=== PATIENT | male | born 1960 | race Caucasian/White ===

== ENCOUNTER 2016-05-27 10:35 | Day surgery (SDC) ==
[2016-05-27] MEDS ORDERED: ALBUTEROL 0.083% NEB NEB STA (10:53)
[2016-05-27] MEDS ORDERED: SUBLIMAZE ONE (11:20)
[2016-05-27] MEDS ORDERED: LIDOCAINE HCL 2% LUER-JET ONE (11:20)
[2016-05-27] MEDS ORDERED: VERSED ONE (11:20)
[2016-05-27] MEDS ORDERED: DIPRIVAN 20 ML VIAL IVP ONE (11:20)
[2016-05-27 12:18] VITALS: BP 121/81; TEMP 97
--- NOTE | 2016-05-28 10:51 | OP ---
PROCEDURE: EGD (ESOPHAGOGASTRODUODENOSCOPY) WITH BIOPSY. ENDOSCOPIST: Colin JOSHI M.D. INDICATION: Nausea INSTRUMENT: GIFH-190. MEDICATION: PER ANESTHESIA. PROCEDURE: The patient was positioned for endoscopy. The oropharynx was sprayed with Cetacaine spray and the endoscope was advanced through the bite block into the esophagus and from there advanced to the duodenum. The duodenum was normal. The pylorus was patent. The antrum was normal. Retroflex exam reveals a hiatal hernia. 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 Biopsies were obtained. Esophagitis extended well up onto the midesophagus. PLAN: 1. We are going to place him on twice a day Protonix and repeat his examine in three months. CC: Murali PEDERSON
== END 2016-05-27 12:29 | disposition home or self-care (01) ==
LOC: SURG 10:35
PROVIDERS: ATTEND Internal Medicine Gastroenterology
DX: R11.0 Nausea (principal); D13.0 Benign neoplasm of esophagus; K20.9 Esophagitis, unspecified; K44.9 Diaphragmatic hernia without obstruction or gangrene
CPT/HCPCS: 94640

== ENCOUNTER 2016-08-27 12:01 | Outpatient (CLI) ==
[2016-08-27 12:46] LABS: BASOPHILS # (AUTO) 0.1 K/uL (0-0.2); BASOPHILS % (AUTO) 1.4 % (0.0-3.0); EOSINOPHILS # (AUTO) 0.2 K/ul (0.0-0.7); EOSINOPHILS % (AUTO) 2.1 % (0.0-7.0); HEMATOCRIT 44.3 % (42.0-52.0); HEMOGLOBIN 15.1 g/dl (14.0-18.0); IMMATURE GRANULOCYTE % (AUTO) 0.4 % (0.0-5.0); LYMPHOCYTES # (AUTO) 2.2 K/uL (0.60-3.4); LYMPHOCYTES % (AUTO) 26.1 (10.0-50.0); MEAN CORPUSCULAR HEMOGLOBIN 30.9 pg (27.0-31.0); MEAN CORPUSCULAR HGB CONC 34.1 (31.8-35.4); MEAN CORPUSCULAR VOLUME 90.8 fl (80.0-94.0); MONOCYTES # (AUTO) 0.5 K/uL (0.4-2.0); MONOCYTES % (AUTO) 5.8 (0-10); NEUTROPHILS # (AUTO) 5.5 K/ul (2.0-6.9); NEUTROPHILS % (AUTO) 64.2; PLATELET COUNT 457 10^3/uL (140-440); RED BLOOD COUNT 4.88 10^6/ul (4.70-6.10); WHITE BLOOD COUNT 8.57 K/ul (4.2-10.2)
[2016-08-27 13:23] LABS: ALBUMIN/GLOBULIN RATIO 0.91; ANION GAP 13.4; BILIRUBIN,TOTAL 0.84 mg/dL (0.00-1.20); BUN/CREATININE RATIO 11.57; CALCIUM 9.7 mg/dL (8.2-10.2); CHOL/HDL RATIO 2.9 (4.5-6.4); CREATININE 0.95 mg/dL (0.60-1.10); POTASSIUM 4.4 mmol/L (3.5-5.1); TOTAL PROTEIN 8.4 g/dL (6.4-8.2)
== END 2016-08-27 12:02 | disposition home or self-care (01) ==
LOC: LAB 12:01
PROVIDERS: ATTEND Nurse Practitioner Family
DX: F32.9 Major depressive disorder, single episode, unspecified (principal); K21.9 Gastro-esophageal reflux disease without esophagitis; Z12.5 Encounter for screening for malignant neoplasm of prostate
CPT/HCPCS: 36415; 80053; 80061; 84439; 84443; 85025

== ENCOUNTER 2016-10-21 11:08 | Day surgery (SDC) ==
[2016-10-21] MEDS ORDERED: LIDOCAINE HCL 2% LUER-JET ONE (11:46)
[2016-10-21] MEDS ORDERED: VERSED ONE (11:46)
[2016-10-21] MEDS ORDERED: DIPRIVAN 20 ML VIAL IVP ONE (11:46)
[2016-10-21 13:06] VITALS: BP 119/82; TEMP 98.4
--- NOTE | 2016-10-22 10:22 | OP ---
PROCEDURE: EGD (ESOPHAGOGASTRODUODENOSCOPY) WITH BIOPSY. ENDOSCOPIST: Colin JOSHI M.D. INDICATION: IVERSON'S ESOPHAGUS. INSTRUMENT: GIFH-190. MEDICATION: PER ANESTHESIA. PROCEDURE: The patient was positioned for endoscopy. The oropharynx was sprayed with Cetacaine spray and the endoscope was advanced through the bite block into the esophagus and from there advanced to the duodenum. The duodenum was normal. The pylorus was patent. The antrum is normal. Retroflex exam reveals a hiatal hernia. 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 Multiple biopsies were obtained. He continues to have signs of esophagitis. He tolerated the procedure without immediate complication. PLAN: 1. Review pathology with repeat exam in three years. The patient was intolerant and told me that the Protonix made him sick to his stomach. Ideally, he would need to be on a proton pump inhibitor. He will need to followup with his primary care physician to determine if he is elgible for any proton pump inhibitor other than Protonix. CC: CAMACHO BROOKE
== END 2016-10-21 13:08 | disposition home or self-care (01) ==
LOC: SURG 11:08
PROVIDERS: ATTEND Internal Medicine Gastroenterology
DX: K21.0 Gastro-esophageal reflux disease with esophagitis (principal); K22.719 Barrett's esophagus with dysplasia, unspecified; K44.9 Diaphragmatic hernia without obstruction or gangrene

== ENCOUNTER 2016-11-27 12:16 | Outpatient (CLI) ==
[2016-11-27 12:23] LABS: BASOPHILS # (AUTO) 0.1 K/uL (0-0.2); BASOPHILS % (AUTO) 1.6 % (0.0-3.0); EOSINOPHILS # (AUTO) 0.1 K/ul (0.0-0.7); EOSINOPHILS % (AUTO) 1.8 % (0.0-7.0); HEMATOCRIT 42.8 % (42.0-52.0); HEMOGLOBIN 14.5 g/dl (14.0-18.0); IMMATURE GRANULOCYTE % (AUTO) 0.5 % (0.0-5.0); LYMPHOCYTES # (AUTO) 2.4 K/uL (0.60-3.4); LYMPHOCYTES % (AUTO) 30.3 (10.0-50.0); MEAN CORPUSCULAR HEMOGLOBIN 30.9 pg (27.0-31.0); MEAN CORPUSCULAR HGB CONC 33.9 (31.8-35.4); MEAN CORPUSCULAR VOLUME 91.1 fl (80.0-94.0); MONOCYTES # (AUTO) 0.4 K/uL (0.4-2.0); MONOCYTES % (AUTO) 5.6 (0-10); NEUTROPHILS # (AUTO) 4.8 K/ul (2.0-6.9); NEUTROPHILS % (AUTO) 60.2; PLATELET COUNT 442 10^3/uL (140-440); WHITE BLOOD COUNT 7.89 K/ul (4.2-10.2)
[2016-11-27 12:37] LABS: ALBUMIN 3.8 g/dL (3.4-5.0); ALBUMIN/GLOBULIN RATIO 0.86; ANION GAP 14.5; BILIRUBIN,TOTAL 0.53 mg/dL (0.00-1.20); BUN/CREATININE RATIO 12.64; CALCIUM 9.6 mg/dL (8.2-10.2); CHOL/HDL RATIO 3.2 (4.5-6.4); CREATININE 0.87 mg/dL (0.60-1.10); POTASSIUM 4.5 mmol/L (3.5-5.1); TOTAL PROTEIN 8.2 g/dL (6.4-8.2)
== END 2016-11-27 12:17 | disposition home or self-care (01) ==
LOC: LAB 12:16
PROVIDERS: ATTEND Nurse Practitioner Family
DX: F32.9 Major depressive disorder, single episode, unspecified (principal); K21.9 Gastro-esophageal reflux disease without esophagitis
CPT/HCPCS: 36415; 80053; 80061; 85025

== ENCOUNTER 2016-11-28 09:02 | Outpatient (CLI) ==
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
--- NOTE | 2016-11-28 10:17 | CT ---
EXAM: CT lumbar spine with and without contrast HISTORY: Lumbago with sciatica COMPARISON: None TECHNIQUE: CT lumbar spine performed with and without intravenous contrast. Coronal and sagittal r eformatted images obtained. FINDINGS: Vertebral bodies normal in height. No fracture. No subluxation. Small marginal osteoph yte formation. Mild intervertebral disc space narrowing L4-L5 and L5-S1 Sacroiliac joints intact. No abnormal area of enhancement. There is left basilar bronchiectasis with associated atelectasis an d/or consolidation, mildly decreased from CT chest 09/02/2016. Aorta normal caliber. Atheroscleros is. T12-L1: No central canal or neural foraminal narrowing. L1-L2: No central canal or neural foraminal narrowing L2-L3: No central canal or neural foraminal narrowing. L3-L4: Posterior disc osteophyte complex and facet arthrosis causing mild central canal and mild bi lateral neural foraminal narrowing L4-L5: Posterior disc osteophyte complex and facet arthrosis causing moderate central canal and mode rate right and mild to moderate left neural foraminal narrowing. L5-S1: Posterior disc osteophyte complex and facet arthrosis causing mild bilateral neural foramina l narrowing IMPRESSION: 1. No fracture or subluxation. 2. Chronic discogenic degenerative disease and facet arthrosis. Please see segmental analysis, not ing central canal and neural foraminal narrowing. 3. Left basilar bronchiectasis with associated atelectasis and/or pneumonia, mildly decreased from CT chest 09/02/2016
== END 2016-11-28 09:03 | disposition home or self-care (01) ==
LOC: RAD 09:02
PROVIDERS: ATTEND Nurse Practitioner Family
DX: M54.40 Lumbago with sciatica, unspecified side (principal); F32.9 Major depressive disorder, single episode, unspecified; K21.9 Gastro-esophageal reflux disease without esophagitis

== ENCOUNTER 2017-03-19 14:01 | Outpatient (CLI) | END 2017-03-19 14:02 | disposition home or self-care (01) | LOC: LAB 14:01 | PROVIDERS: ATTEND Nurse Practitioner Family | DX: R74.8 Abnormal levels of other serum enzymes (principal); M54.2 Cervicalgia; M54.40 Lumbago with sciatica, unspecified side; G89.29 Other chronic pain; M50.30 Other cervical disc degeneration, unspecified cervical region; M51.36 Other intervertebral disc degeneration, lumbar region; K21.9 Gastro-esophageal reflux disease without esophagitis; F32.9 Major depressive disorder, single episode, unspecified ==

== ENCOUNTER 2017-03-25 13:43 | Outpatient (CLI) ==
--- NOTE | 2017-03-25 14:35 | US ---
EXAM: Ultrasound bilateral carotid duplex HISTORY: Dizziness and giddiness. History of right carotid surgery. COMPARISON: None TECHNIQUE: Sonographic and color Doppler evaluation of the carotids were performed. FINDINGS: The right carotid is patent in appearance with mild atherosclerotic plaque visualized. Right ECA is p oorly visualized. The right ICA peak systolic velocity measures 100 cm/sec which is normal. The ICA / CCA peak systolic velocity ratio is 1.0 and ICA end-diastolic velocity is 30 cm/sec. The left carotid is patent in appearance with mild atherosclerotic plaque visualized. The left ICA peak systolic velocity measures 70 cm/sec which is normal. The left ICA / CCA peak systolic velocity ratio is 0.7 and ICA end-diastolic velocity is 30 cm/sec. Vertebral arteries demonstrate antegrade flow bilaterally. IMPRESSION: Bilateral mild to moderate scattered atherosclerotic disease with no elevated Doppler velocities to s uggest hemodynamically significant stenosis.
== END 2017-03-25 13:44 | disposition home or self-care (01) ==
LOC: RAD 13:43
PROVIDERS: ATTEND Nurse Practitioner Family
DX: R42 Dizziness and giddiness (principal)

== ENCOUNTER 2017-04-23 16:32 | Outpatient (CLI) | END 2017-04-23 16:33 | disposition home or self-care (01) | LOC: LAB 16:32 | PROVIDERS: ATTEND Nurse Practitioner Family | DX: R42 Dizziness and giddiness (principal) | CPT/HCPCS: 36415; 80053 ==

== ENCOUNTER 2017-04-24 08:59 | Outpatient (CLI) ==
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
== END 2017-04-24 09:00 | disposition home or self-care (01) ==
LOC: RAD 08:59
PROVIDERS: ATTEND Nurse Practitioner Family
DX: R42 Dizziness and giddiness (principal)

== ENCOUNTER 2017-05-05 09:19 | Outpatient (CLI) ==
--- NOTE | 2017-05-05 13:36 | DI ---
EXAM: Modified barium swallow HISTORY: Dysphagia. Technique: Lateral video fluoroscopy was performed in conjunction with speech therapy using multiple consistencies to evaluate swallowing function. Findings / impression: Aspiration was observed with barium covered sausage and the aspiration appeare d to occur before the swallow was fully initiated. Deep penetration was observed with thin liquids. T here was vallecular residue with all consistencies. Patient appeared to do the best with nectar. The contraction of the esophagus appeared to be disordered. There also may be an upper esophageal strictu re. There are degenerative changes of the cervical spine with prominent anterior osteophytes. Melissa baez see dedicated speech pathology report for additional details.
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
== END 2017-05-05 09:20 | disposition home or self-care (01) ==
LOC: RAD 09:19
PROVIDERS: ATTEND Nurse Practitioner Family
DX: R13.10 Dysphagia, unspecified (principal); K22.719 Barrett's esophagus with dysplasia, unspecified

== ENCOUNTER 2017-05-19 10:38 | Outpatient (RCR) ==
--- NOTE | 2017-05-19 15:44 | RS.DYSPHTX ---
Dysphagia Treatment Note Date of Note: 05/19/17 Visit #: 2 (first treatment post outpatient MBSS.) Time of Treatment: 11:00 Subjective: Pt reported he had been sick for one week and did go see his MD. He completed a week of antibiotics and felt better at time of ST visit. The patient also reported he was going to get a scan of his brain soon, no date was provided, to determine if any procedures for hydrocephalus were to be completed. The patient had not thickened any liquids since outpatient MBSS was completed. However he did not report any changes in his lungs at this time. O2 was placed and pt was at 98-[address] visit. Total treatment time: 60 - Short Term Goals Goal #1: Pt to safely consume nectar liquid without s/s of aspiration Activity/Accuracy: 8 oz of nectar thick liquids presented via open cup. 1x delayed cough and 1x throat clear was noted. Pt is an active smoker and also reported mild mucous drainage with drinks of liquids. Goal #2: Pt to complete Shaker exercise with minimal difficulty Activity/Accuracy: N/a this date Goal #3: Pt to complete ten reps of oral motor exercises with 75% acc. Goal #4: Pt to demonstrate bolus manipulation with minimal difficulty - Alf Goals Goal #1: Pt to consume liquid and solid w/o s/s of aspiration Assessment: HUNTER GUIDE assessed pt with mixing nectar thick liquids. Pt required mdoerate assistance and education to achieve nectar thick texture. Multiple trials were completed, and pt could verbalize and demonstrate procedure for mixing a nectar thick liquid at the end of the session. HUNTER GUIDE assessed pt swallowing nectar thick liquids and utilizing compensatory swallow strategies. Pt required small sips via open cup with a multiple swallow between each trial. Chin tuck was also trialed. Pt reported sensation of residue was reduced with chin tuck. - Units Charged Swallowing Therapy: 4 - Plan Frequency of Treatment: 1x a week Duration of Treatment: 6 weeks. Comments: HUNTER GUIDE provided printed papers with written instructions for mixing nectar thick liquids in the home environment. Other printed papers were provided with instructions for going to a restaurant with thickened liquids. Information was given about dairy products and aspiration/pneumonia.
== END 2017-05-21 ==
PROVIDERS: ATTEND Nurse Practitioner Family
DX: R13.10 Dysphagia, unspecified (principal)

== ENCOUNTER 2017-06-16 13:00 | Outpatient (RCR) ==
--- NOTE | 2017-05-26 15:03 | RS.DYSPHTX ---
Dysphagia Treatment Note Date of Note: 05/26/17 Visit #: 3 Time of Treatment: 11:00 Subjective: Pt's significant other present and participated with Skilled ST this date. Pt stated he had been thickening all his liquids since last ST visit. The significant other reported he had followed the MD DO [facility] recommendations. Questions about dairy products and alcholic beverages were discussed in detail. MD DO [facility] did not recommend any dairy products d/t mucous production and higher risk for pneunomia. MD DO [facility] did not recommend any PO intake while consuming alcholic beverages d/t risk of choking with decreased inhibitions and muscle coordination. Total treatment time: 45 - Short Term Goals Goal #1: Pt to safely consume nectar liquid without s/s of aspiration Activity/Accuracy: N/a this date. Only discussion with thickening and thickening agents to be purchased were addressed this date. Goal #2: Pt to complete Shaker exercise with minimal difficulty Activity/Accuracy: This was trialed with 1 set of 10 reps and 1 set maintaing head posture for 8 seconds. Pt had moderate difficulty. MD [facility] utilized head rest to increase comfort. MD DO [facility] reviewed all precautions and educated pt on reason for exercise. Goal #3: Pt to complete ten reps of oral motor exercises with 75% acc. Activity/Accuracy: Lingual lateralization with moderate difficulty over 1 trial of 10 reps. Lingual tip exercise with severe difficulty maintaining lingual tip to alvelor ridge for 7 seconds. Lingual tip sweep with moderate difficulty with clock mena direction, minimal difficulty with counter-clock mena direction. Goal #4: Pt to demonstrate bolus manipulation with minimal difficulty Activity/Accuracy: n/a this date. Education with lingual sweep and bolus manipulation was discussed for swallow safety. - Senior Care Goals Goal #1: Pt to consume liquid and solid w/o s/s of aspiration Assessment: Assessment of Shaker exercise completed. Pt had difficulty with neck comfort during exercise due to reports of cervical fusion. With head rest assistance and tactile cueing, pt completed ten reps. Pt maintained head lifted from surface for 8 seconds prior to needing a rest break. MD DO [facility] to start Shaker with 15 reps over 1 trial and sustaining head with 10 seconds over 2 trials. Oral-motor exercises assessed and pt requires max cues to control breathing. lingual coordination with exercises increase with tactile and visual cues. - Units Charged Swallowing Therapy: 3 - Plan Frequency of Treatment: 1x a week Duration of Treatment: 6 weeks Comments: Next session will include increased exercises and trials with nectar liquids. last two sessions will include PO trials with bolus manipulation.
--- NOTE | 2017-06-02 14:35 | RS.DYSPHTX ---
Dysphagia Treatment Note Date of Note: 06/02/17 Visit #: 3 Time of Treatment: 01:00 Subjective: Pt and pt's friend present for session. Friend had reported a difficulty morning, but BED SETTER did not see pt's mood interfere with treatment this date. Pt reported having difficulty with instructions for thickening liquids, frequency, and duration with thickened liquids. Pt also reported neck was sore after last session. BED SETTER educated pt and friend on both questions. Total treatment time: 60 - Short Term Goals Goal #1: Pt to safely consume nectar liquid without s/s of aspiration Activity/Accuracy: no overt s/s of aspiration with sips via straw. Goal #2: Pt to complete Shaker exercise with minimal difficulty Activity/Accuracy: BED SETTER had to provide pillow support and hand support for neck. Pt reported minimal pain. 2 trials sustaining head lift completed with 12 seconds and 20 seconds. 2 repetitions completed and pt reported pain. BED SETTER to determine if Shaker can be completed due to cervical spine deterioration. Goal #3: Pt to complete ten reps of oral motor exercises with 75% acc. Activity/Accuracy: Lingual tip in rotary motion completed with tactile support with 50% accuracy 3x. lingual tip sustained at alveloar ridge with 5 seconds and moderate difficulty. lateralization over 10 trials with mild difficulty with jaw stability. Goal #4: Pt to demonstrate bolus manipulation with minimal difficulty Activity/Accuracy: To be completed at next session. - Motor Checker Goals Goal #1: Pt to consume liquid and solid w/o s/s of aspiration Assessment: laryngeal elevation exercises trialed this date due to pts reports of pain in cervical spine. BED SETTER had Shaker exercise to strengthen LE and UES function, but this may be discharged if pt reports neck pain at next session. Laryngeal elevation completed over five trials with difficulty raising pitch. Pitched sustained with /e/ over 4-6 seconds. - Units Charged Swallowing Therapy: 4 - Plan Frequency of Treatment: 1x/week Duration of Treatment: 6 weeks Comments: Next session diet texture analysis. Begin working on bolus manipulation. Provide printed handouts with [id number] instructions for all education pt has been given.
--- NOTE | 2017-06-12 12:43 | RS.DYSPHTX ---
Dysphagia Treatment Note Date of Note: 06/12/17 Visit #: 4 Time of Treatment: 10:30 Subjective: Pt reported he had been consuming nectar thick liquids with his PO intake. However between meals, he does not use thickener in his drinks. He also has limited his dairy intake, specifically milk. But when asked, he stated he is still consuming milk 3-4x a week. This date, the BATTERY CHECKER noted his vocal quality changed and his cough sounded congested. No stats were taken nor were lung sounds monitored. The patient did not report feeling sick. Total treatment time: 30 - Short Term Goals Goal #1: Pt to safely consume nectar liquid without s/s of aspiration Activity/Accuracy: 4oz of nectar thick liquids were mixed via pt. He mixed the consistency exactly with the recipe, independently. Straw was used and the pt had no overt s/s of aspiration. Goal #2: Pt to complete Shaker exercise with minimal difficulty Goal #3: Pt to complete ten reps of oral motor exercises with 75% acc. Goal #4: Pt to demonstrate bolus manipulation with minimal difficulty - Dry Cleaner Hand Goals Goal #1: Pt to consume liquid and solid w/o s/s of aspiration Assessment: BATTERY CHECKER assessed his independent skills with making nectar thick liquids. Pt demonstrated all steps to complete a correctly mixed nectar thick consistency. Trials of nectar with and without a straw were assessed. He required the straw to guide and control the liquids. Due to decreased lingual control, the straw aided his successful swallows. Mixed consistency between nectar thick and thin liquids were trialed. BATTERY CHECKER assessed with tsp and pt had delayed cough or throat clear on 3/3 trials. Straw assessed and pt had throat clear on 2/4 trials. Open cup assessed and pt had overt s/s of aspiration on 3/ 3 trials. Pt still not safely consuming thin liquids and has overt s/s of aspiration with all thin consistencies. - Units Charged Swallowing Therapy: 2 - Plan Frequency of Treatment: 1x/week Duration of Treatment: 6 weeks Comments: Printed papers were provided to pt regarding, recommended diet textures, instructions for oral motor exercises, list of safe swallow precautions, and a list of compensatory swallow strategies. Written information was provided with nectar thick information.
--- NOTE | 2017-06-16 14:23 | RS.DYSPHTX ---
Dysphagia Treatment Note Date of Note: 06/16/17 Visit #: 4 Time of Treatment: 01:00 Subjective: Pt reported last three days with increased regurgitation episodes. These have been primarily affecting him while he is sleeping, making him get out of bed and regurgitate. Pt and pt's friend reported he is consuming nectar thick liquids with all meals. Total treatment time: 60 - Short Term Goals Goal #1: Pt to safely consume nectar liquid without s/s of aspiration Activity/Accuracy: [place] thick drinks via open cup consumed with PO intake. No overt s/s of aspiration. Without PO intake, no overt s/s of apsiration. Goal #2: Pt to complete Shaker exercise with minimal difficulty Goal #3: Pt to complete ten reps of oral motor exercises with 75% acc. Goal #4: Pt to demonstrate bolus manipulation with minimal difficulty Activity/Accuracy: Multiple trials completed. Initially pt required increased verbal cues to form bolus. However after 10 trials, bolus coordination and manipulation was noted with minimal difficulty. - Diesel Engine Mechanic Goals Goal #1: Pt to consume liquid and solid w/o s/s of aspiration Assessment: Diet texture anaylsis with mechanical soft diet and nectar thick liquids completed. RECORD CUTTER provided max cueing during initial trials for bolus manipulation and pressure with swallow function. Pt had throat clearing and overt coughing with 1/2 teaspoon and 3/4 teaspoon size bites. When RECORD CUTTER presented 1 tsp bite pt increased bolus control and decreased throat clearing. - Units Charged Swallowing Therapy: 4 - Plan Frequency of Treatment: 1x a week Duration of Treatment: 6 weeks Comments: next session continue diet texture analysis and training with bolus manipulation and compensatory swallow strategies.
== END 2017-06-21 ==
PROVIDERS: ATTEND Nurse Practitioner Family
DX: R13.10 Dysphagia, unspecified (principal)

== ENCOUNTER 2017-06-25 11:00 | Outpatient (RCR) ==
--- NOTE | 2017-06-23 14:50 | RS.DYSPHTX ---
Dysphagia Treatment Note Date of Note: 06/23/17 Visit #: 5 Time of Treatment: 01:00 Subjective: Pt stated he was anxious and was noted with essential hand tremors. Pt reported feeling upset due to recent holiday and family matters. Pt required verbal counseling briefly to reduce nervous behaviors and increase focus to structured therapy. Pt's girlfriend participated during skilled ST. When asked about his swallowing since his last visit, she reported multiple changes with moderate improvements. Improvements included no regurgitation, minimal choking episodes, and noticeably less effort with swallow initiation. The pt stated his swallow function has shown major improvements, and he feels more comfortable with his PO intake. Total treatment time: 45 - Short Term Goals Goal #1: Pt to safely consume nectar liquid without s/s of aspiration Activity/Accuracy: 1x throat clear over 10 trials. Pt mixed nectar drink and required minimal direction for perfect consistency. Pt did report not feeling as well, which influenced his accuracy with tasks this date. Goal #2: Pt to complete Shaker exercise with minimal difficulty Activity/Accuracy: D/c this goal. Not being met or completed due to pt's tolerance with neck pain. Goal #3: Pt to complete ten reps of oral motor exercises with 75% acc. Activity/Accuracy: 75-80% accuracy demonstration of exercises. Pt completes exercises in home environment 3-5x/week. Goal #4: Pt to demonstrate bolus manipulation with minimal difficulty Activity/Accuracy: Minimal difficulty when provided verbal cues on 4/4 trials. Limited trials this date, due to pt's nerves and anxiety. Pt reported not feeling well enough to consume PO. - Longterm Goals Goal #1: Pt to consume liquid and solid w/o s/s of aspiration Assessment: FORENSIC SCIENTIST continued assessment with safe swallow precautions and compensatory swallow strategies with PO intake. Pt verbalized all strategies from previous ST session with 90% accuracy, requiring verbal cues for pacing strategy. Pt independently demonstrated strategies with 80% accuracy. Pt required verbal cues for posture and pacing. - Units Charged Swallowing Therapy: 3 - Plan Comments: Next session D/C pt. Provide printed papers with overview of home instructions and all compensatory swallow strategies.
--- NOTE | 2017-06-25 13:16 | RS.DYSPHDC ---
Subjective Date of Discharge: 06/25/17 Date of Evaluation: 05/05/17 Duration of Therapy: 6 weeks Number of sessions: 6 Functional Reporting G Codes: Swallowing Goal CJ Discharge CK Severity Impairment Rationale: Due to mechanical soft diet with nectar thick liquids. Short Term Goals Problem: Penetration/aspiration Goal #1: Pt to safely consume nectar liquid without s/s of aspiration Goal to be met by: 06/25/17 Progress Towards Goal: Partially Met Comments:: Occasional throat clear with liquids. Problem: Esophagus function Goal #2: Pt to complete Shaker exercise with minimal difficulty Goal to be met by: 06/25/17 Progress Towards Goal: Not Met Comments:: GAMMA OPERATOR d/c this goal d/t neck pain Problem: Lingual control/strength/coordination Goal #3: Pt to complete ten reps of oral motor exercises with 75% acc. Goal to be met by: 06/25/17 Progress Towards Goal: Met Comments:: Pt completes exercises in home environment daily. Demonstration with 70-80% Problem: Multiple swallows and coughing with food Goal #4: Pt to demonstrate bolus manipulation with minimal difficulty Goal to be met by: 06/25/17 Progress Towards Goal: Met Comments:: Adequate formation, reduced swallow attempts and clear oral cavity. Immigration Investigator Goals Problem: Aspiration/penetration with lung congestion Goal #1: Pt to consume liquid and solid w/o s/s of aspiration Goal to be met by: 06/25/17 Progress towards goal: Partially Met Comments:: occasional throat clears with PO intake. Reason for Discharge Comments: Pt reports improved swallow function. Pt has demonstrated increased safe swallow precautions and use of compensatory swallow strategies to reduce overt s/s of aspiration. Pt is consuming food more frequently without coughing, clearing throat, or reports of regurgitation. Reason for Discharge/Current Status:: At time of discharge pt had no lung congestion or new lung infections since the SOC. The pt verbalizes and demonstrates trained techniques to improve swallow function and reduce risk for aspiration. Pt still has a risk for aspiration/penetration with thin liquids. Review of all safe swallow precautions, trained compensatory swallow techniques , oral motor exercises, and food/liquid recommendations were reviewed. And pt can verbalize information with printed hand outs and assistance from girlfriend. Pt discharged with mechanical soft diet texture and nectar thick liquid consistency for safest and least restrictive diet texture.
== END 2017-07-21 23:59 ==
PROVIDERS: ATTEND Nurse Practitioner Family
DX: R13.10 Dysphagia, unspecified (principal)

== ENCOUNTER 2017-07-04 11:27 | Outpatient (CLI) | END 2017-07-04 11:28 | disposition home or self-care (01) | LOC: FCC-LAB 11:27 | PROVIDERS: ATTEND Nurse Practitioner Family | DX: M25.50 Pain in unspecified joint (principal) | CPT/HCPCS: 36415; 85025; 85651; 86430; 86617; 86664; 86757; 87798 ==

== ENCOUNTER 2017-08-14 13:25 | Outpatient (CLI) ==
--- NOTE | 2017-08-14 14:11 | DI ---
EXAM: Two views of the chest. History: Respiratory tract infection, cough. Findings: Heart size is within normal limits. Seen on the lateral view there is an opacity posterio rly probably within the left lower lung. No pneumothorax. No acute osseous abnormalities. Impression: Possible left lower lobe infiltrate and/or trace left pleural effusion.
== END 2017-08-14 13:26 | disposition home or self-care (01) ==
LOC: LAB 13:25
PROVIDERS: ATTEND Internal Medicine Infectious Disease
DX: R53.83 Other fatigue (principal); M25.50 Pain in unspecified joint; R76.0 Raised antibody titer; D64.9 Anemia, unspecified; F32.9 Major depressive disorder, single episode, unspecified; E78.00 Pure hypercholesterolemia, unspecified; R05 Cough; R13.10 Dysphagia, unspecified; Z12.5 Encounter for screening for malignant neoplasm of prostate
CPT/HCPCS: 36415; 80053; 80061; 82550; 82607; 82728; 83540; 83550; 84439; 84443; 84466; 85025; 85045; 85651; 86140; 86617; 86803; 87340; 87389

== ENCOUNTER 2017-08-21 08:19 | Outpatient (CLI) ==
--- NOTE | 2017-08-21 09:27 | CT ---
EXAM: CT Chest with and without contrast. HISTORY: Left upper lobe ground-glass nodule. Left lobe consolidation. Mediastinal lymphadenopathy . Follow-up. COMPARISON: Radiograph 08/14/2017, CT 12/30/2016, 09/02/2016, 06/09/2015, 03/03/2015. TECHNIQUE: Multiple axial images of the chest were obtained prior to and following intravenous admin istration of 75 mL of Omnipaque 315, low osmolar. Images were reformatted in the sagittal and crowell l planes. FINDINGS: Mild large mediastinal lymph nodes are stable. Nonenlarged hilar lymph nodes are present. Heart size is normal. No pericardial effusion identified. There are calcified granulomatous mcginnis es present. The left upper lobe ground-glass nodule noted on the prior study has resolved. Scattered ground glas s opacities nodular densities in both lungs are probably stable. Left lower lobe consolidation along the diaphragm is also probably unchanged since 09/02/2016. No new pulmonary opacities are seen. No pleural effusion or pneumothorax identified. Limited images of the upper abdomen demonstrate no acute abnormality. Osseous structures are intact. IMPRESSION: 1. Resolution of a ground-glass nodule in the left upper lobe seen on the most recent study. 2. Otherwise stable nodular densities and ground-glass opacities in both lungs as well as left lower lobe consolidation since 09/02/2016. Consider follow-up CT in 12 months for reassessment.. 3. Stable mediastinal lymphadenopathy. 4. No new pulmonary findings
== END 2017-08-21 08:20 | disposition home or self-care (01) ==
LOC: RAD 08:19
PROVIDERS: ATTEND Nurse Practitioner Family
DX: R93.8 Abnormal findings on diagnostic imaging of other specified body structures (principal)

== ENCOUNTER 2018-04-24 15:40 | Outpatient (CLI) | END 2018-04-24 15:41 | disposition home or self-care (01) | LOC: RHC-LAB 15:40 | PROVIDERS: ATTEND Nurse Practitioner Family | DX: D64.9 Anemia, unspecified (principal); E78.00 Pure hypercholesterolemia, unspecified | CPT/HCPCS: 36415; 80053; 80061; 85025 ==